=== PATIENT | male | born 1980 | race Caucasian/White ===

== ENCOUNTER 2016-06-18 15:22 | Emergency (ER) | payer BC, OTHER ==
[~2016-06-18] VITALS: Ht 180.3 cm; Wt 100.2 kg
[~2016-06-18 15:22] MED LIST: ALBUAER2 INH; HYCUDL5 PO
[2016-06-18 15:30] VITALS: TEMP 37.2; Ht 180.3 cm; Wt 100.2 kg
[2016-06-18 16:03] VITALS: O2SAT 99
--- NOTE | 2016-06-18 16:06 | DIAGNOSTIC IMAGING REPORT ---
SINGLE VIEW CHEST CLINICAL HISTORY: Atypical chest pain of one month's duration. FINDINGS: An AP, portable, upright chest radiograph is obtained. No prior studies are available for comparison at the time of dictation. The examination is mildly degraded by portable technique and patient rotation. The cardiomediastinal silhouette is unremarkable. The lungs and pleural spaces are clear. No pneumothorax is seen. The bony thorax is grossly intact. IMPRESSION: No active disease in the chest. Electronically signed by: Darian Ervin M.D. 06/18/2016 4:04 PM Dictated Date/Time: 06/18/2016 4:04 PM
[2016-06-18] MEDS ORDERED: ASPI325T39 PO (16:08)
[2016-06-18 16:22] LABS: BASO % 0.3 %; BASO ABS # 0.02 K/uL (0-0.2); COMPLETE YES; EOS % 1.7 %; IG% 0.2 %; LYMPH % 41.5 %; MEAN CORPUSCULAR HGB CONC 36.4 g/dl (32-36); MEAN PLATELET VOLUME 9.8 fL (7.4-10.4); MONO % 7.9 %; NEUT % 48.4 %; PLATELET COUNT 240 K/uL (130-400); RED BLOOD COUNT 4.94 M/uL (4.7-6.1); WHITE BLOOD COUNT 5.79 K/uL (4.8-10.8)
[2016-06-18 16:40] LABS: BUN/CREATININE RATIO 14.4 (10-20); CREATININE 1.3 mg/dl (0.60-1.40)
[2016-06-18 16:42] LABS: ALB/GLOB RATIO 1.4 (0.9-2)
[2016-06-18 17:18] VITALS: BP 128/79; PULSE 69; O2SAT 96
--- NOTE | 2016-06-18 19:49 | EMERGENCY ROOM VISIT NOTE ---
History Report prepared by Venita: Lucille Benton Under the Supervision of: Dr. Efrain Gastelum M.D. First contact with patient: 15:36 Chief Complaint: CHEST PAIN Stated Complaint: CHEST PAINS/TIGHT, LIGHTHEADED Nursing Triage Summary: Patient states has been having chest pain/tightness for about 2-3 weeks, that starts around 6 pm. Patient started going to gym again 3 weeks ago. Patient states today stood up and had 5 sharp chest pains and felt dizzy. Patient states feels tightness in chest now and SOB. Denies N/V/D. Patient states took 2 aspirin, without relief. History of Present Illness The patient is a 36 year old male who presents to the Emergency Room with complaints of constant dull chest pain with intermittent episodes of sharp chest pain that started about 2-3 weeks ago. He rates this dull pain a 2/10 and the sharp pain a 7/10 in severity. The patient states that when he stood up today he experienced 5 sharp chest pains and became dizzy, which brought him to the ED. Associated symptoms include shortness of breath. He mentions that he has been starting to workout recently but he does not experience these symptoms during his workout or with exertion. The patient denies nausea, vomiting, and diarrhea. He also denies recent illness or recent travel other than a trip to the [facility] in April. He has a family history of DVT. His father is a concrete mixer truck driver and had a DVT due to his occupation. Source of History: patient Onset: 2-3 weeks ago Position: chest Symptom Intensity: dull- 2/10, sharp- 7/10 Quality: sharp, dull Associated Symptoms: + SOB, No diarrhea, No nausea, No vomiting Review of Systems See HPI for pertinent positives & negatives. A total of 10 systems reviewed and were otherwise negative. Past Medical & Surgical Surgical Problems: (1) No pertinent past surgical history Family History FH: cancer FH: diabetes mellitus FH: heart disease FH: hypertension FH: kidney disease Social History Smoking Status: Former Smoker Alcohol Use: none Marital Status: Housing Status: lives with significant other Occupation Status: employed Current/Historical Medications Miscellaneous Medications Aspirin (Aspirin Ec), 325 MG PO Allergies Coded Allergies: No Known Allergies (Unverified , NONE, 06/18/16) Physical Exam Vital Signs Date Time Temp Pulse Resp B/P Pulse Ox O2 Delivery O2 Flow Rate FiO2 2/15/17 17:18 69 18 128/79 96 06/18/16 16:11 64 06/18/16 16:03 99 Room Air 06/18/16 15:45 99 Room Air 06/18/16 15:30 37.2 87 20 134/94 96 Room Air Physical Exam Constitutional: Vital signs reviewed. Eyes: Pupils are equal round reactive to light. Conjunctiva are noninjected. ENT: Pharynx is clear without erythema or exudate. Mucous membranes are moist. Neck supple without meningeal signs. Respiratory: Clear to auscultation bilaterally. Breath sounds are equal bilaterally. Cardiovascular: Regular rate and rhythm. No rubs or gallops. GI: Soft, nondistended and nontender. Bowel sounds are present. Musculoskeletal: No peripheral edema. No lower extremity tenderness. Left sternal chest tenderness. Integumentary: No cyanosis. Neurological: The patient is awake and alert. No focal deficits. Psychiatric: Normal affect. Medical Decision & Procedures ER Provider Diagnostic Interpretation: X-ray results as stated below per interpretation by me and the radiologist: SINGLE VIEW CHEST CLINICAL HISTORY: Atypical chest pain of one month's duration. FINDINGS: An AP, portable, upright chest radiograph is obtained. No prior studies are available for comparison at the time of dictation. The examination is mildly degraded by portable technique and patient rotation. The cardiomediastinal silhouette is unremarkable. The lungs and pleural spaces are clear. No pneumothorax is seen. The bony thorax is grossly intact. IMPRESSION: No active disease in the chest. Electronically signed by: Darian Ervin M.D. 06/18/2016 4:04 PM Dictated Date/Time: 06/18/2016 4:04 PM Laboratory Results 06/18/16 16:00 Red Blood Count 4.94, Mean Corpuscular Volume 85.0, Mean Corpuscular Hemoglobin 31.0, Mean Corpuscular Hemoglobin Concent 36.4, Mean Platelet Volume 9.8, Neutrophils (%) (Auto) 48.4, Lymphocytes (%) (Auto) 41.5, Monocytes (%) (Auto) 7.9, Eosinophils (%) (Auto) 1.7, Basophils (%) (Auto) 0.3, Neutrophils # (Auto) 2.80, Lymphocytes # (Auto) 2.40, Monocytes # (Auto) 0.46, Eosinophils # (Auto) 0.10, Basophils # (Auto) 0.02 06/18/16 16:00 Test 06/18/16 16:00 06/18/16 16:04 White Blood Count 5.79 K/uL (4.8-10.8) Red Blood Count 4.94 M/uL (4.7-6.1) Hemoglobin 15.3 g/dL (14.0-18.0) Hematocrit 42.0 % (42-52) Mean Corpuscular Volume 85.0 fL (80-100) Mean Corpuscular Hemoglobin 31.0 pg (25-34) Mean Corpuscular Hemoglobin Concent 36.4 g/dl (32-36) Platelet Count 240 K/uL (130-400) Mean Platelet Volume 9.8 fL (7.4-10.4) Neutrophils (%) (Auto) 48.4 % Lymphocytes (%) (Auto) 41.5 % Monocytes (%) (Auto) 7.9 % Eosinophils (%) (Auto) 1.7 % Basophils (%) (Auto) 0.3 % Neutrophils # (Auto) 2.80 K/uL (1.4-6.5) Lymphocytes # (Auto) 2.40 K/uL (1.2-3.4) Monocytes # (Auto) 0.46 K/uL (0.11-0.59) Eosinophils # (Auto) 0.10 K/uL (0-0.5) Basophils # (Auto) 0.02 K/uL (0-0.2) RDW Standard Deviation 37.9 fL (36.4-46.3) RDW Coefficient of Variation 12.2 % (11.5-14.5) Immature Granulocyte % (Auto) 0.2 % Immature Granulocyte # (Auto) 0.01 K/uL (0.00-0.02) D-Dimer < 190 ug/L FEU (0-500) Anion Gap 10.0 mmol/L (3-11) Est Creatinine Clear Calc Drug Dose 96.5 ml/min Estimated GFR () 82.5 Estimated GFR (Non- 71.2 BUN/Creatinine Ratio 14.4 (10-20) Calcium Level 9.0 mg/dl (8.5-10.1) Total Bilirubin 2.7 mg/dl (0.2-1) Aspartate Amino Transf (AST/SGOT) 27 U/L (15-37) Alanine Aminotransferase (ALT/SGPT) 61 U/L (12-78) Alkaline Phosphatase 49 U/L (45-117) Total Protein 7.8 gm/dl (6.4-8.2) Albumin 4.5 gm/dl (3.4-5.0) Globulin 3.3 gm/dl (2.5-4.0) Albumin/Globulin Ratio 1.4 (0.9-2) Bedside Troponin I 0.010 ng/ml (0-0.045) Laboratory results as reviewed by me. ECG Indication: chest pain Rate (beats per minute): 67 Rhythm: normal sinus Findings: no acute ischemic change, no ectopy ED Course 1614: The patient was evaluated in room B8. A complete history and physical exam was performed. 1706: I discussed the test results with the patient. I recommended follow up with his primary care physician. I recommended the patient take a break from working out or significant exertion until cleared by Dr. The patient was discharged home. Medical Decision This is a 36-year-old male who presents with chest pain. Differential diagnosis includes unstable angina, OR, pleurisy, costochondritis, pericarditis , pulmonary embolism. I did perform a limited focused review of portions of the patient's old chart on the electronic medical record. The patient has had no recent pertinent visits to this hospital. I did evaluate the patient as noted above. The patient is presenting with a month of chest pain. It is not associated with exertion. It is reproducible on palpation. IV access was established. The patient was placed on a continuous manager cardiac cath. I did order and personally review the patient's 12- lead EKG and chest x-ray as described above. Twelve-lead EKG does not demonstrate any acute ischemia. I did order and review the patient's blood work as noted in the electronic medical record. D-dimer and troponin are negative. I did discuss the test results with the patient. At this time there is no indication for hospitalization. I did recommend outpatient workup by his regular physician. His symptoms are very atypical and not consistent with cardiac disease but I did recommend he discuss possible outpatient stress testing with his doctor and avoid exertion in the meantime. He was discharged in good condition. Resident Physician Supervision Note: I did evaluate and examine this patient myself. I did guide management for the patient. I agree with the resident's () assessment as discussed. Please see the resident's dictation for further details. Impression Primary Impression: Acute chest pain Scribe Attestation The scribe's documentation has been prepared under my direct and personally reviewed by me in its entirety. I confirm that the note above accurately reflects all work, treatment, procedures, and medical decision making performed by me. Departure Information Dispostion Home / Self-Care Referrals No Doctor, Assigned (PCP) Forms HOME CARE DOCUMENTATION FORM, IMPORTANT VISIT INFORMATION Patient Instructions My [facility] Additional Instructions You have been examined and treated today on an emergency basis only. This is not a substitute for, or an effort to provide, complete comprehensive medical care. It is impossible to recognize and treat all injuries or illnesses in a single emergency department visit. It is therefore important that you follow up closely with your physician. Call as soon as possible for an appointment. Talk to your doctor about a possible outpatient cardiac stress test. Return for worsening symptoms or if you develop fever, vomiting, difficulty breathing or any other concerning symptoms.
--- NOTE | 2016-06-19 13:49 | EMERGENCY ROOM VISIT NOTE ---
History First contact with patient: 15:36 Chief Complaint: CHEST PAIN Stated Complaint: CHEST PAINS/TIGHT, LIGHTHEADED Nursing Triage Summary: Patient states has been having chest pain/tightness for about 2-3 weeks, that starts around 6 pm. Patient started going to gym again 3 weeks ago. Patient states today stood up and had 5 sharp chest pains and felt dizzy. Patient states feels tightness in chest now and SOB. Denies N/V/D. Patient states took 2 aspirin, without relief. History of Present Illness The patient is a 36 year old male who presents to the Emergency Room with complaints of chest pain for about a month. He recently started exercising more , and today became concerned that he had 5 episodes of a pinching chest pain that made him feel dizzy. He felt associated shortness of breath but denied any radiation of the pain. He took two aspirin which did not change the pain. His father had a history of DVT. He has not been on any long flights or had periods of immobility. He denies any chest pain at this time. Review of Systems See HPI for pertinent positives & negatives. A total of 10 systems reviewed and were otherwise negative. Past Medical/Surgical History Surgical Problems: (1) No pertinent past surgical history Family History FH: cancer FH: diabetes mellitus FH: heart disease FH: hypertension FH: kidney disease Social History Smoking Status: Former Smoker Alcohol Use: none Marital Status: Housing Status: lives with significant other Occupation Status: employed Current/Historical Medications Miscellaneous Medications Aspirin (Aspirin Ec), 325 MG PO Allergies Coded Allergies: No Known Allergies (Unverified , NONE, 06/18/16) Physical Exam Vital Signs Date Time Temp Pulse Resp B/P Pulse Ox O2 Delivery O2 Flow Rate FiO2 06/18/16 17:18 69 18 128/79 96 06/18/16 16:11 64 06/18/16 16:03 99 Room Air 06/18/16 15:45 99 Room Air 06/18/16 15:30 37.2 87 20 134/94 96 Room Air Pain Rating (0-10): 0 Physical Exam GENERAL: Awake, alert, well-appearing, in no acute distress HENT: Normocephalic, atraumatic. Oropharynx unremarkable. EYES: Normal conjunctiva. Sclera non-icteric. NECK: Supple. No nuchal rigidity. FROM. No JVD. RESPIRATORY: Clear to auscultation. CARDIAC: Regular rate, normal rhythm. Extremities warm and well perfused. Pulses equal. ABDOMEN: Soft, non-distended. No tenderness to palpation. No rebound or guarding. No masses. RECTAL: Deferred. MUSCULOSKELETAL: Chest examination reveals tenderness to palpation. The back is symmetrical on inspection without obvious abnormality. There is no CVA tenderness to palpation. No joint edema. LOWER EXTREMITIES: Calves are equal size bilaterally and non-tender. No edema. No discoloration. NEURO: Normal sensorium. No sensory or motor deficits noted. SKIN: No rash or jaundice noted. Medical Decision & Procedures ER Provider Diagnostic Interpretation: SINGLE VIEW CHEST CLINICAL HISTORY: Atypical chest pain of one month's duration. FINDINGS: An AP, portable, upright chest radiograph is obtained. No prior studies are available for comparison at the time of dictation. The examination is mildly degraded by portable technique and patient rotation. The cardiomediastinal silhouette is unremarkable. The lungs and pleural spaces are clear. No pneumothorax is seen. The bony thorax is grossly intact. IMPRESSION: No active disease in the chest. Laboratory Results 06/18/16 16:00 Red Blood Count 4.94, Mean Corpuscular Volume 85.0, Mean Corpuscular Hemoglobin 31.0, Mean Corpuscular Hemoglobin Concent 36.4, Mean Platelet Volume 9.8, Neutrophils (%) (Auto) 48.4, Lymphocytes (%) (Auto) 41.5, Monocytes (%) (Auto) 7.9, Eosinophils (%) (Auto) 1.7, Basophils (%) (Auto) 0.3, Neutrophils # (Auto) 2.80, Lymphocytes # (Auto) 2.40, Monocytes # (Auto) 0.46, Eosinophils # (Auto) 0.10, Basophils # (Auto) 0.02 06/18/16 16:00 Test 06/18/16 16:00 06/18/16 16:04 White Blood Count 5.79 K/uL (4.8-10.8) Red Blood Count 4.94 M/uL (4.7-6.1) Hemoglobin 15.3 g/dL (14.0-18.0) Hematocrit 42.0 % (42-52) Mean Corpuscular Volume 85.0 fL (80-100) Mean Corpuscular Hemoglobin 31.0 pg (25-34) Mean Corpuscular Hemoglobin Concent 36.4 g/dl (32-36) Platelet Count 240 K/uL (130-400) Mean Platelet Volume 9.8 fL (7.4-10.4) Neutrophils (%) (Auto) 48.4 % Lymphocytes (%) (Auto) 41.5 % Monocytes (%) (Auto) 7.9 % Eosinophils (%) (Auto) 1.7 % Basophils (%) (Auto) 0.3 % Neutrophils # (Auto) 2.80 K/uL (1.4-6.5) Lymphocytes # (Auto) 2.40 K/uL (1.2-3.4) Monocytes # (Auto) 0.46 K/uL (0.11-0.59) Eosinophils # (Auto) 0.10 K/uL (0-0.5) Basophils # (Auto) 0.02 K/uL (0-0.2) RDW Standard Deviation 37.9 fL (36.4-46.3) RDW Coefficient of Variation 12.2 % (11.5-14.5) Immature Granulocyte % (Auto) 0.2 % Immature Granulocyte # (Auto) 0.01 K/uL (0.00-0.02) D-Dimer < 190 ug/L FEU (0-500) Anion Gap 10.0 mmol/L (3-11) Est Creatinine Clear Calc Drug Dose 96.5 ml/min Estimated GFR () 82.5 Estimated GFR (Non- 71.2 BUN/Creatinine Ratio 14.4 (10-20) Calcium Level 9.0 mg/dl (8.5-10.1) Total Bilirubin 2.7 mg/dl (0.2-1) Aspartate Amino Transf (AST/SGOT) 27 U/L (15-37) Alanine Aminotransferase (ALT/SGPT) 61 U/L (12-78) Alkaline Phosphatase 49 U/L (45-117) Total Protein 7.8 gm/dl (6.4-8.2) Albumin 4.5 gm/dl (3.4-5.0) Globulin 3.3 gm/dl (2.5-4.0) Albumin/Globulin Ratio 1.4 (0.9-2) Bedside Troponin I 0.010 ng/ml (0-0.045) ECG Indication: chest pain Rhythm: normal sinus ED Course 13:50: I evaluated the patient in room B8. A complete history and physical exam was performed. I discussed my findings with my attending Dr. Gastelum. I ordered labwork and a CXR. EKG was reviewed. 1700: I discussed the test results with the patient, as all were negative, he was discharged home and advised to follow up with his PCP. Medical Decision 36 yo M with chest pain over a few weeks. Differential includes pleurisy, costochondritis, PE, [place], pericarditis. He has low cardiac risk factors overall. His chest pain was reproducible on palpation. He had a normal EKG and his labwork, including troponin x 2 were negative. He was advised to follow up with a PCP regarding this and discharged home in good condition. Impression Primary Impression: Acute chest pain Departure Information Dispostion Home / Self-Care Condition GOOD Referrals No Doctor, Assigned Forms HOME CARE DOCUMENTATION FORM, IMPORTANT VISIT INFORMATION Patient Instructions My [facility] Additional Instructions You have been examined and treated today on an emergency basis only. This is not a substitute for, or an effort to provide, complete comprehensive medical care. It is impossible to recognize and treat all injuries or illnesses in a single emergency department visit. It is therefore important that you follow up closely with your physician. Call as soon as possible for an appointment. Talk to your doctor about a possible outpatient cardiac stress test. Return for worsening symptoms or if you develop fever, vomiting, difficulty breathing or any other concerning symptoms. Resident Tracking Resident Involvement: Resident Care Provided Care Provided: Adult ED
== END 2016-06-18 17:22 | disposition home or self-care (01) ==
LOC: C.EDB 15:23
DX: R07.9 Chest pain, unspecified (principal); Z87.891 Personal history of nicotine dependence; Z80.9 Family history of malignant neoplasm, unspecified; Z83.3 Family history of diabetes mellitus; Z82.49 Family history of ischemic heart disease and other diseases of the circulatory system; Z84.1 Family history of disorders of kidney and ureter